=== PATIENT | female | born 1995 | race Caucasian/White ===

== ENCOUNTER 2018-03-28 04:53 | Emergency (ER) | payer OTHER ==
[~2018-03-28] VITALS: Ht 157.5 cm; Wt 64.1 kg
[2018-03-28 05:39] LABS: GLUCOSE 95 mg/dL (70-99)
[2018-03-28 05:42] LABS: SERUM ETHYL ALCOHOL 179 mg/dL
[2018-03-28 05:43] LABS: CREATININE 0.6 mg/dL (0.6-1.3); GFR ESTIMATE (CALCULATED) > 59 mL/min/
[2018-03-28 05:44] LABS: HEMATOCRIT 40.7 % (36.0-46.0); HEMOGLOBIN 14.3 G/DL (11.9-15.5); MCH 31.9 PG (29.0-34.0); MCHC 35.1 G/DL (30.0-36.0); MCV 90.8 FL (83-99); PLATELET COUNT 295 K/uL (156-360); RBC DIS.WIDTH-CV 12.4 % (11.8-14.6); RBC DIS.WIDTH-SD 41.1 % (39-53); RED BLOOD COUNT 4.48 M/uL (3.80-5.20); UREA NITROGEN (BUN) 7 mg/dL (9-23); WHITE BLOOD COUNT 7.1 K/uL (4.1-10.2)
[2018-03-28 05:54] LABS: QUANTITATIVE HCG < 4.0 MIU/ML
[2018-03-28 06:11] LABS: POTASSIUM 3.7 mEq/L (3.7-5.4); SODIUM 142 mEq/L (136-147)
[2018-03-28] MEDS ORDERED: FLEXERIL10 MG PO (06:35)
[2018-03-28 06:55] LABS: CHLORIDE 107 mEq/L (99-109)
[2018-03-28 07:13] VITALS: BP 110/79
== END 2018-03-28 07:07 | disposition home or self-care (01) ==
LOC: EME 04:53
PROVIDERS: Emergency Medicine
DX: S16.1XXA Strain of muscle, fascia and tendon at neck level, initial encounter (principal); R51 Headache; F10.129 Alcohol abuse with intoxication, unspecified; Y90.6 Blood alcohol level of 120-199 mg/100 ml; V48.1XXA Car passenger injured in noncollision transport accident in nontraffic accident, initial encounter; Y92.488 Other paved roadways as the place of occurrence of the external cause; J45.909 Unspecified asthma, uncomplicated
CPT/HCPCS: 70450; 71045; 72125; 80048; 84702; 85027; 99281; 99284; G0480